=== PATIENT | female | born 1940 | race Caucasian/White ===

== ENCOUNTER 2023-04-07 09:01 | Day surgery (SDC) | payer MEDICARE, OTHER ==
[~2023-04-07] VITALS: Ht 175.3 cm; Wt 74.0 kg
[~2023-04-07 09:01] MED LIST: CALC600T69 PO; CHOL10006 PO; DULO60CA65 PO; FAMO1TAB19 PO; HYDR-3972 PO; HYDR25TA4 PO; LOSA-415 PO; MAGN300C PO; MULT-1074 PO; OMEP40CA21 PO; RANI150T8 PO; SIMV-42 PO; ZOLP5TAB8 PO
[2023-04-07] MEDS ORDERED: LOPE-144 PO (10:06)
[2023-04-07] MEDS ORDERED: GABA300C PO (10:06)
[2023-04-07] MEDS ORDERED: PANT20TA18 PO (10:06)
[2023-04-07 10:09] VITALS: BP 171/75; PULSE 86; RESP 16; TEMP 97.8; O2SAT 95
[2023-04-07] MEDS: normal saline 1000ml 1,000 ML IV SCH (10:26)
[2023-04-07] MEDS: cefazolin 2gm/D5W 100mL 100 ML IV ONE (10:26)
[2023-04-07] MEDS ORDERED: iohexol 300 MG/1 ML 50ml polymer ONE (10:26)
[2023-04-07] MEDS ORDERED: FLU VACC QS2023-24(6MOS UP)/PF 60 MCG/0.5 ML SYRINGE IM ONE (10:35)
[2023-04-07 11:30] VITALS: BP 161/65; PULSE 101; RESP 18; O2SAT 96
[2023-04-07 16:05] VITALS: RESP 16; O2SAT 95
== END 2023-04-07 12:00 | disposition home or self-care (01) ==
LOC: SSTAY O 09:01
PROVIDERS: ATTEND Radiology Diagnostic Radiology
DX: T83.84XA Pain due to genitourinary prosthetic devices, implants and grafts, initial encounter (principal); N13.39 Other hydronephrosis; K21.9 Gastro-esophageal reflux disease without esophagitis; M19.90 Unspecified osteoarthritis, unspecified site; M48.00 Spinal stenosis, site unspecified; G62.9 Polyneuropathy, unspecified; Z88.5 Allergy status to narcotic agent; Z79.899 Other long term (current) drug therapy; Z85.41 Personal history of malignant neoplasm of cervix uteri; Z90.710 Acquired absence of both cervix and uterus; Z23 Encounter for immunization; Y83.8 Other surgical procedures as the cause of abnormal reaction of the patient, or of later complication, without mention of misadventure at the time of the procedure; Y92.89 Other specified places as the place of occurrence of the external cause
CPT/HCPCS: 50435; 90686; C1729; G0008; J0690; J7030; Q9967; A4421; A6258